=== PATIENT | female | born 1970 | race Caucasian/White ===

== ENCOUNTER 2020-07-08 01:59 | Observation (INO) | payer BC, OTHER ==
[2020-07-08 02:54] LABS: Basophils # (A) 0.1 k/uL (0-0.2); Basophils % (A) 1 %; Eosinophils # (A) 0.3 k/uL (0-0.7); Eosinophils % (A) 5 %; HGB 12.8 gm/dL (11.4-16.0); Lymphocytes # (A) 2.3 k/uL (1.0-4.8); Lymphocytes % (A) 35 %; MCH 29.8 pg (25.0-35.0); MCHC 34.6 g/dL (31.0-37.0); MCV 86.2 fL (80.0-100.0); Mean Platelet Volume 10.6; Monocytes # (A) 0.4 k/uL (0-1.0); Monocytes % (A) 7 %; Neutrophils # (A) 3.3 k/uL (1.3-7.7); Neutrophils % (A) 51 %; Platelet Count 237 k/uL (150-450); RDW 12.8 % (11.5-15.5); WBC 6.5 k/uL (3.8-10.6)
--- NOTE | 2020-07-08 03:01 | XR ---
EXAM: XR Abdomen, 1 View CLINICAL HISTORY: ITS.REASON XR Reason: abdominal pain TECHNIQUE: Frontal supine view of the abdomen/pelvis. COMPARISON: No relevant prior studies available. FINDINGS: Gastrointestinal tract: Gas and moderate stool are seen throughout the nondilated colon. No pneumatosis. Bones/joints: No acute fracture or malalignment. Other findings: No suspicious calcification. IMPRESSION: Moderate stool.
[2020-07-08 03:02] LABS: ALT 13 U/L (4-34); AST 22 U/L (14-36); African American GFR (CKD) >90 (>60 ml/min/1.73 sqM); Albumin 4.3 g/dL (3.5-5.0); Alkaline Phosphatase 38 U/L (38-126); Amylase 75 U/L (30-110); Anion Gap 6 mmol/L; Blood Urea Nitrogen 10 mg/dL (7-17); Calcium 9.5 mg/dL (8.4-10.2); Carbon Dioxide 28 mmol/L (22-30); Chloride 103 mmol/L (98-107); Glucose 102 mg/dL (74-99); Lipase 127 U/L (23-300); Non-African American GFR(CKD) >90 (>60 ml/min/1.73 sqM); Potassium 4.4 mmol/L (3.5-5.1); Sodium 137 mmol/L (137-145); Total Bilirubin 0.2 mg/dL (0.2-1.3); Total Protein 6.9 g/dL (6.3-8.2)
--- NOTE | 2020-07-08 03:14 | ED ---
Abdominal Pain HPI - General Chief Complaint: Abdominal Pain Stated Complaint: Abd Pain Time Seen by Provider: 07/08/20 03:02 Source: patient, family Mode of arrival: ambulatory Limitations: no limitations - Related Data Allergies Allergy/AdvReac Type Severity Reaction Status Date / Time No Known Allergies Allergy Verified 07/08/20 02:07 Review of Systems ROS Statement: Those systems with pertinent positive or pertinent negative responses have been documented in the HPI. ROS Other: All systems not noted in ROS Statement are negative. Past Medical History Past Medical History: No Reported History History of Any Multi-Drug Resistant Organisms: None Reported Past Surgical History: Hysterectomy Past Psychological History: No Psychological Hx Reported Smoking Status: Never smoker Past Alcohol Use History: Occasional General Exam Limitations: no limitations Course Vital Signs 07/08/20 02:02 Temperature 97.7 F Pulse Rate 63 Respiratory 18 Rate Blood Pressure 163/90 O2 Sat by Pulse 100 Oximetry Medical Decision Making - Lab Data Result diagrams: 07/08/20 02:36 07/08/20 02:36 Lab Results 07/08/20 07/08/20 07/08/20 Range/Units 02:36 02:36 02:36 WBC 6.5 (3.8-10.6) k/uL RBC 4.30 (3.80-5.40) m/uL Hgb 12.8 (11.4-16.0) gm/dL Hct 37.0 (34.0-46.0) % MCV 86.2 (80.0-100.0) fL MCH 29.8 (25.0-35.0) pg MCHC 34.6 (31.0-37.0) g/dL RDW 12.8 (11.5-15.5) % Plt Count 237 (150-450) k/uL MPV 10.6 Neutrophils % 51 % Lymphocytes % 35 % Monocytes % 7 % Eosinophils % 5 % Basophils % 1 % Neutrophils # 3.3 (1.3-7.7) k/uL Lymphocytes # 2.3 (1.0-4.8) k/uL Monocytes # 0.4 (0-1.0) k/uL Eosinophils # 0.3 (0-0.7) k/uL Basophils # 0.1 (0-0.2) k/uL Sodium 137 (137-145) mmol/L Potassium 4.4 (3.5-5.1) mmol/L Chloride 103 (98-107) mmol/L Carbon Dioxide 28 (22-30) mmol/L Anion Gap 6 mmol/L BUN 10 (7-17) mg/dL Creatinine 0.52 (0.52-1.04) mg/dL Est GFR (CKD-EPI)AfAm >90 (>60 ml/min/1.73 sqM) Est GFR (CKD-EPI)NonAf >90 (>60 ml/min/1.73 sqM) Glucose 102 H (74-99) mg/dL Calcium 9.5 (8.4-10.2) mg/dL Total Bilirubin 0.2 (0.2-1.3) mg/dL AST 22 (14-36) U/L ALT 13 (4-34) U/L Alkaline Phosphatase 38 (38-126) U/L Total Protein 6.9 (6.3-8.2) g/dL Albumin 4.3 (3.5-5.0) g/dL Amylase 75 (30-110) U/L Lipase 127 (23-300) U/L Urine Color Yellow Urine Appearance Clear (Clear) Urine pH 5.0 (5.0-8.0) Ur Specific [place] 1.019 (1.001-1.035) Urine Protein Negative (Negative) Urine Glucose (UA) Negative (Negative) Urine Ketones Negative (Negative) Urine Blood Negative (Negative) Urine Nitrite Negative (Negative) Urine Bilirubin Negative (Negative) Urine Urobilinogen <2.0 (<2.0) mg/dL Ur Leukocyte Esterase Moderate H (Negative) Urine RBC 1 (0-5) /hpf Urine WBC 4 (0-5) /hpf Ur Squamous Epith Cells 6 H (0-4) /hpf Urine Bacteria Rare H (None) /hpf Hyaline Casts 4 H (0-2) /lpf Urine Mucus Rare H (None) /hpf Disposition Clinical Impression: Abdominal pain, Cholecystitis Disposition: ADMITTED IP TO THIS HOSP Condition: Good Is patient prescribed a controlled substance at d/c from ED?: No Referrals: Shirley Mcdonald MD [Primary Care Provider] - 1-2 days
[2020-07-08] MEDS ORDERED: MORPHINE SULFATE 4 MG/ML SYRINGE IVP STA ×2 (03:20)
[2020-07-08] MEDS ORDERED: KETOROLAC 15 MG/ML 1 ML VIAL IVP STA (03:20)
[2020-07-08] MEDS: KETOROLAC 15 MG/ML 1 ML VIAL IVP STA ×2 (03:35→13:40)
[2020-07-08 04:05] LABS: Appearance,Urine Clear (Clear); Bacteria,Urine Rare /hpf; Bilirubin,Urine Negative (Negative); Blood,Urine Negative (Negative); Color,Urine Yellow; Glucose,Urine (UA) Negative (Negative); Hyaline Casts,Urine 4 /lpf (0-2); Ketones,Urine Negative (Negative); Leukocyte Esterase,Urine Moderate (Negative); Mucus,Urine Rare /hpf; Nitrite,Urine Negative (Negative); Protein,Urine Negative (Negative); RBC,Urine 1 /hpf (0-5); Specific Gravity,Urine 1.019 (1.001-1.035); Squamous Epithelial Cell,Urine 6 /hpf (0-4); Urobilinogen,Urine <2.0 mg/dL (<2.0); WBC,Urine 4 /hpf (0-5)
--- NOTE | 2020-07-08 04:21 | CT ---
EXAM: CT Abdomen and Pelvis With Intravenous Contrast CLINICAL HISTORY: ITS.REASON CT Reason: pain TECHNIQUE: Axial computed tomography images of the abdomen and pelvis with intravenous contrast. CTDI is 26.57 mGy and DLP is 1181.14 mGy-cm. This CT exam was performed using one or more of the following dose reduction techniques: automated exposure control, adjustment of the mA and/or kV according to patient size, and/or use of iterative reconstruction technique. COMPARISON: No relevant prior studies available. FINDINGS: Lung bases: No significant abnormality. ABDOMEN: Liver: No significant abnormality. Gallbladder and bile ducts: A 2.5 cm gallstone is present in the neck of the distended, mildly thickened gallbladder. Mildly dilated common bile duct measures up to 8 mm. Pancreas: No significant abnormality. Spleen: No significant abnormality. Adrenals: No significant abnormality. Kidneys and ureters: No significant abnormality. No hydronephrosis. Stomach and bowel: No significant abnormality. Bowel is nondilated. PELVIS: Appendix: No findings to suggest acute appendicitis. Bladder: No significant abnormality. Reproductive: The uterus is absent. ABDOMEN and PELVIS: Intraperitoneal space: No significant abnormality. No free air. Bones/joints: No acute fracture or malalignment. Soft tissues: No significant abnormality. Vasculature: No significant abnormality. No abdominal aortic aneurysm. Lymph nodes: No significant abnormality. IMPRESSION: A 2.5 cm gallstone is present in the neck of the distended, mildly thickened gallbladder. Mildly dilated common bile duct measures up to 8 mm. Findings can be seen in the setting of acute cholecystitis.
[2020-07-08] MEDS ORDERED: SODIUM CHLORIDE 0.9% 1,000 ML IV ONE (05:09)
[2020-07-08] MEDS ORDERED: MORPHINE SULFATE 4 MG/ML SYRINGE IVP PRN (05:10)
[2020-07-08] MEDS ORDERED: AMPICILLIN-SULBACTAM 3 GM in SODIUM CHLORIDE 0.9% 100 ML IVPB STA (06:34)
--- NOTE | 2020-07-08 08:35 | US ---
EXAMINATION TYPE: US gallbladder DATE OF EXAM: 07/08/2020 COMPARISON: NONE CLINICAL HISTORY: [place]. Abn CT - stone, abd pain with episodes throughout the year, large habitus EXAM MEASUREMENTS: Liver Length: 17.1 cm Gallbladder Wall: 0.6 cm CBD: 0.8 cm Right Kidney: 9.5 x 4.3 x 4.3 cm Pancreas: not seen due to bowel gas Liver: difficult to penetrate Gallbladder: 2.4cm stone seen in neck, moved slightly when rolled LLD, tiny fundal stone, with wall thickness Evidence for sonographic Sales's sign: no, but on meds CBD: 0.8 -1.0cm, Right Kidney: wnl IMPRESSION: 1. Study is limited due to overlying bowel gas. The pancreas is not seen. The liver is poorly visuali zed. 2. Cholelithiasis. There is a 2.4 cm gallstone in the neck of the gallbladder and a tiny fundal stone . The gallbladder wall is thickened measuring 5 mm. Clinical correlation for cholecystitis is recomme nded. 3. The common duct measures 8 mm to 1 cm, which is dilated. A small obstructing lesion or calculus is not excluded. MRCP would be helpful for further evaluation of clinically indicated.
[2020-07-08] MEDS ORDERED: IV FLUID CONTINUATION 1,000 ML IV ONE ×3 (10:36→13:23)
[2020-07-08] MEDS ORDERED: ONDANSETRON 4 MG/2 ML VIAL ONE (10:39)
[2020-07-08] MEDS ORDERED: HEPARIN SODIUM,PORCINE/PF 5,000 UNIT/0.5 ML SYRINGE SQ ONE (10:39)
--- NOTE | 2020-07-08 10:39 | P.GSHP ---
History of Present Illness H&P Date: 07/08/20 Chief Complaint: Right upper quadrant pain Patient presents today to the ER with complaints of right upper quadrant pain. She has had several episodes like this in the past. This one seemed to be lasting longer. In the ER she had a CAT scan which showed a distended gallbl adder with inflammatory changes and a large stone impacted in the neck of the gallbladder. The common bile duct was slightly distended on both that study and the ultrasound with the CBD measuring 8-10 mm in size. No filling defects noted. Patient's liver enzymes are normal. She denies any change in the color of her skin urine or stool. - Review of Systems Comment: The patient denies any acute changes in vision or hearing, no dysphagia or odynophagia, no chest pain or shortness of breath, no dysuria or hematuria, no headache, no runny nose, no rectal bleeding or melena, no unexplained weight loss Past Medical History Past Medical History: No Reported History History of Any Multi-Drug Resistant Organisms: None Reported Past Surgical History: Hysterectomy Past Psychological History: No Psychological Hx Reported Smoking Status: Never smoker Past Alcohol Use History: Occasional Medications and Allergies Home Medications Medication Instructions Recorded Confirmed Type Albuterol Nebulized [Ventolin 2.5 mg INHALATION RT-Q6H PRN 07/08/20 07/08/20 History Nebulized] Cyclobenzaprine [Flexeril] 10 mg PO HS PRN 07/08/20 07/08/20 History Esomeprazole Magnesium [NexIUM 20 mg PO HS 07/08/20 07/08/20 History 24Hr] Montelukast [Singulair] 10 mg PO HS 07/08/20 07/08/20 History Allergies Allergy/AdvReac Type Severity Reaction Status Date / Time No Known Allergies Allergy Verified 07/08/20 06:59 Surgical - Exam Vital Signs Temp Pulse Resp BP Pulse Ox 97.7 F 63 18 163/90 100 07/08/20 02:02 07/08/20 02:02 07/08/20 02:02 07/08/20 02:02 07/08/20 02:02 Physical exam: General: Well-developed, well-nourished HEENT: Normocephalic, sclerae nonicteric Abdomen: Right upper quadrant tenderness, nondistended Extremities: No edema Neuro: Alert and oriented Results - Labs 07/08/20 02:36 07/08/20 02:36 Abnormal Lab Results - Last 24 Hours (Table) 07/08/20 07/08/20 Range/Units 02:36 02:36 Glucose 102 H (74-99) mg/dL Ur Leukocyte Esterase Moderate H (Negative) Ur Squamous Epith Cells 6 H (0-4) /hpf Urine Bacteria Rare H (None) /hpf Hyaline Casts 4 H (0-2) /lpf Urine Mucus Rare H (None) /hpf Diabetes panel 07/08/20 Range/Units 02:36 Sodium 137 (137-145) mmol/L Potassium 4.4 (3.5-5.1) mmol/L Chloride 103 (98-107) mmol/L Carbon Dioxide 28 (22-30) mmol/L BUN 10 (7-17) mg/dL Creatinine 0.52 (0.52-1.04) mg/dL Glucose 102 H (74-99) mg/dL Calcium 9.5 (8.4-10.2) mg/dL AST 22 (14-36) U/L ALT 13 (4-34) U/L Alkaline Phosphatase 38 (38-126) U/L Total Protein 6.9 (6.3-8.2) g/dL Albumin 4.3 (3.5-5.0) g/dL Calcium panel 07/08/20 Range/Units 02:36 Calcium 9.5 (8.4-10.2) mg/dL Albumin 4.3 (3.5-5.0) g/dL Pituitary panel 07/08/20 Range/Units 02:36 Sodium 137 (137-145) mmol/L Potassium 4.4 (3.5-5.1) mmol/L Chloride 103 (98-107) mmol/L Carbon Dioxide 28 (22-30) mmol/L BUN 10 (7-17) mg/dL Creatinine 0.52 (0.52-1.04) mg/dL Glucose 102 H (74-99) mg/dL Calcium 9.5 (8.4-10.2) mg/dL Adrenal panel 07/08/20 Range/Units 02:36 Sodium 137 (137-145) mmol/L Potassium 4.4 (3.5-5.1) mmol/L Chloride 103 (98-107) mmol/L Carbon Dioxide 28 (22-30) mmol/L BUN 10 (7-17) mg/dL Creatinine 0.52 (0.52-1.04) mg/dL Glucose 102 H (74-99) mg/dL Calcium 9.5 (8.4-10.2) mg/dL Total Bilirubin 0.2 (0.2-1.3) mg/dL AST 22 (14-36) U/L ALT 13 (4-34) U/L Alkaline Phosphatase 38 (38-126) U/L Total Protein 6.9 (6.3-8.2) g/dL Albumin 4.3 (3.5-5.0) g/dL Assessment and Plan (1) Cholecystitis Narrative/Plan: 49-year-old female with acute cholecystitis. Ultrasound and CAT scan studies reviewed. Labs noted. We'll proceed with laparoscopic, possible open cholecystectomy at this time. Risks of bleeding, infection, bile leak, bile duct injury, retained common bile duct stone, trocar injury, conversion to an open procedure, hernia, anesthesia related complications were reviewed. The patient understands and wishes to proceed. Current Visit: Yes Status: Acute Code(s): K81.9 - CHOLECYSTITIS, UNSPECIFIED SNOMED Code(s): 70593329
[2020-07-08] MEDS ORDERED: ONDANSETRON 4 MG/2 ML VIAL IVP ONE (10:46)
[2020-07-08] MEDS ORDERED: HEPARIN SODIUM,PORCINE 5,000 UNIT/ML 1 ML VIAL SQ ONE (10:46)
[2020-07-08] MEDS ORDERED: DEXAMETHASONE SOD PHOSPHATE 4 MG/ML 1 ML VIAL IVP ONE (10:46)
[2020-07-08] MEDS ORDERED: ePHEDrine SULFATE/0.9% NACL/PF 50 MG/5 ML SYRINGE IV ONE (12:05)
[2020-07-08] MEDS ORDERED: fentaNYL (PF) 50 MCG/ML 2 ML AMP ONE (12:05)
[2020-07-08] MEDS ORDERED: ROCURONIUM 10 MG/ML (5 ML VIAL) IV ONE (12:05)
[2020-07-08] MEDS ORDERED: GLYCOPYRROLATE 0.2 MG/ML 2 ML VIAL ONE (12:05)
[2020-07-08] MEDS ORDERED: PROPOFOL 10 MG/ML 20 ML VIAL IV ONE (12:05)
[2020-07-08] MEDS ORDERED: MIDAZOLAM 2 MG/2 ML VIAL ONE (12:05)
[2020-07-08] MEDS ORDERED: LIDOCAINE 1% INJ 10MG/ML (20 ML MDV) ONE (12:05)
[2020-07-08] MEDS ORDERED: NEOSTIGMINE 1 MG/ML 10 ML VIAL ONE (12:05)
[2020-07-08] MEDS ORDERED: SUCCINYLCHOLINE CHLORIDE 100 MG/5 ML SYR IV ONE (12:05)
[2020-07-08] MEDS ORDERED: HYDROmorphone (PF) 1 MG/ML ONE (12:05)
[2020-07-08] MEDS ORDERED: SODIUM CHLORIDE 0.9% 100 ML with ceFAZolin 2,000 MG IV ONE ×2 (12:18)
[2020-07-08] MEDS ORDERED: LACTATED RINGERS 1,000 ML IV ONE (12:19)
[2020-07-08] MEDS ORDERED: BUPIVACAINE (PF) 0.25% 30 ML VIAL SQ ONE ×3 (12:19→12:28)
[2020-07-08] MEDS ORDERED: HYDROcodone/APAP 5-325MG 1 EACH TAB PO PRN (13:18)
[2020-07-08] MEDS ORDERED: ACETAMINOPHEN TAB 325 MG TAB PO PRN (13:18)
[2020-07-08] MEDS ORDERED: NALOXONE 0.4 MG/ML 1 ML VIAL IV PRN (13:18)
--- NOTE | 2020-07-08 13:22 | P.OP ---
Date of Procedure: 07/08/20 Procedure(s) Performed: PREOPERATIVE DIAGNOSIS: Acute calculus cholecystitis POSTOPERATIVE DIAGNOSIS: Same with hydrops PROCEDURE: Laparoscopic cholecystectomy SURGEON: Bashir EBL: Minimal see anesthesia record ANESTHESIA: Gen. COMPLICATIONS: None OPERATIVE PROCEDURE: The patient was brought and placed on the operating room table in the supine position. The patient was placed under general anesthesia at that time. The abdomen was prepped and draped in the usual sterile fashion. A small vertical supraumbilical incision was made. The fascia was grasped with the Gavin forceps. The fascia was retracted anteriorly. The Veress needle was advanced into the peritoneal cavity. The saline drop test was normal. Insufflation took place up to 15 mmHg. A 5 mm optical trocar was advanced and the peritoneal cavity. 2 additional 5 mm trochars were placed in the right upper quadrant under direct visualization. A 12 mm trocar was advanced into the epigastric incision site. The gallbladder was acutely inflamed with a large stone impacted in the infundibulum. The gallbladder was retracted superiorly and laterally. The peritoneum overlying the infundibulum was bluntly dissected. The patient's cystic duct was visualized. The junction between the cystic duct common and hepatic duct was identified. The critical view of safety was achieved after blunt dissection. The cystic duct was then divided after placement of 3 12 mm clips on the patient's side and one on the specimen side. The cystic artery was identified and clipped as well. A small vessel was seen along the gallbladder fossa and clipped as well. The gallbladder was then removed from the liver bed using electrocautery. The gallbladder was then removed from the epigastric trocar site with an Endo Catch bag. The gallbladder fossa was irrigated with saline. There was no evidence of any bleeding or biliary drainage seen. The fascia at the 12 millimeter site was closed using a Venkat-Juan 0 Vicryl stitch. The trochars were then removed. The skin at all 4 sites was closed using a 4-0 Monocryl stitch. Skin glue was utilized on the incision sites. At the end of this procedure the sponge and needle counts were correct. DISPOSITION: Stable to the recovery room
[2020-07-08] MEDS: KETOROLAC 15 MG/ML 1 ML VIAL IVP SCH ×2 (13:37→18:08)
[2020-07-08] MEDS: HYDROmorphone 0.5 MG/0.5 ML SYRINGE IVP PRN ×3 (13:47→19:54)
[2020-07-08] MEDS: AMPICILLIN-SULBACTAM 3 GM in SODIUM CHLORIDE 0.9% 100 ML IVPB SCH ×2 (15:23→23:04)
[2020-07-08] MEDS: HEPARIN SODIUM,PORCINE/PF 5,000 UNIT/0.5 ML SYRINGE SQ SCH (15:24)
[2020-07-09] MEDS: KETOROLAC 15 MG/ML 1 ML VIAL IVP SCH ×2 (01:31→05:32)
[2020-07-09] MEDS: HEPARIN SODIUM,PORCINE/PF 5,000 UNIT/0.5 ML SYRINGE SQ SCH ×2 (01:32→07:35)
[2020-07-09] MEDS: AMPICILLIN-SULBACTAM 3 GM in SODIUM CHLORIDE 0.9% 100 ML IVPB SCH (07:35)
[2020-07-09 07:45] VITALS: BP 134/79; PULSE 68; RESP 18; TEMP 97.7
[2020-07-09] MEDS ORDERED: PANTOPRAZOLE 40 MG/10 ML VIAL IV SCH (09:00)
--- NOTE | 2020-07-09 11:08 | P.DS ---
<Raisa Bruner - Last Filed: 07/09/20 11:06> Providers Expected date of discharge: 07/09/20 Hospital Course: Discharge diagnosis 1. Acute calculus cholecystitis status post laparoscopic cholecystectomy Hospital course This is a 49-year-old female who presented with right upper quadrant abdominal pain. She has had several episodes like this in the past. This one seemed to be lasting longer. In the ER she had a CAT scan which showed a distended gallbladder with inflammatory changes and a large stone impacted in the neck of the gallbladder. The common bile duct was slightly distended on both that study and the ultrasound with the CBD measuring 8-10 mm in size. No filling defects noted. Patient's liver enzymes are normal. She denies any change in the color of her skin urine or stool. Patient is status post laparoscopic cholecystectomy. She tolerated surgery well. She reports that her pain is controlled. She is tolerating diet. She is passing flatus. She is up and ambulating. She is afebrile. She is stable for discharge. Please refer to chart for any further details. Physician Meter Attendant note has been reviewed by physician. Signing provider agrees with the documented findings, assessment, and plan of care. Patient Condition at Discharge: Stable Plan - Discharge Summary Discharge Rx Participant: No New Discharge Prescriptions: New oxyCODONE HCL [OxyIR] 5 mg PO Q6H PRN 3 Days #6 tab PRN Reason: Breakthrough Pain Continue Esomeprazole Magnesium [NexIUM 24Hr] 20 mg PO HS Albuterol Nebulized [Ventolin Nebulized] 2.5 mg INHALATION RT-Q6H PRN PRN Reason: Shortness Of Breath Cyclobenzaprine [Flexeril] 10 mg PO HS PRN PRN Reason: Muscle Spasm Montelukast [Singulair] 10 mg PO HS Discharge Medication List Albuterol Nebulized [Ventolin Nebulized] 2.5 mg INHALATION RT-Q6H PRN 07/08/20 [History] Cyclobenzaprine [Flexeril] 10 mg PO HS PRN 07/08/20 [History] Esomeprazole Magnesium [NexIUM 24Hr] 20 mg PO HS 07/08/20 [History] Montelukast [Singulair] 10 mg PO HS 07/08/20 [History] oxyCODONE HCL [OxyIR] 5 mg PO Q6H PRN 3 Days #6 tab 07/08/20 [Rx] Follow up Appointment(s)/Referral(s): Erich Camejo MD [Medical Doctor] - 1 Week Shirley Mcdonald MD [Primary Care Provider] - 1-2 days Patient Instructions/Handouts: *Surgery [facility] - Laparoscopic Cholecystectomy Discharge Instructions Activity/Diet/Wound Care/Special Instructions: low fat diet No driving while taking OxyIR No lifting over 10 pounds You may shower. No soaking or tub baths for 2 weeks Very light activity until you are reevaluated at your follow up appointment with your surgeon Discharge Disposition: HOME SELF-CARE <Erich Camejo - Last Filed: 07/09/20 12:20> Providers Date of admission: 07/08/20 05:10 Attending physician: Erich Camejo Primary care physician: Shirley Mcdonald MD - Discharge Diagnosis(es) (1) Cholecystitis Status: Acute Hospital Course: As above. Patient doing well today. May discharge. Follow-up one week.
== END 2020-07-09 11:40 | disposition home or self-care (01) ==
LOC: EC 01:59 → 6NMEDSUR 05:10
PROVIDERS: ADMIT Surgery; ATTEND Surgery
DX: K80.13 Calculus of gallbladder with acute and chronic cholecystitis with obstruction (principal); K82.1 Hydrops of gallbladder; J45.909 Unspecified asthma, uncomplicated; K21.9 Gastro-esophageal reflux disease without esophagitis; Z79.899 Other long term (current) drug therapy; Z90.710 Acquired absence of both cervix and uterus
CPT/HCPCS: 47562; 96376; 96374; 96375; 99285; 36415; 88304; 80053; 82150; 83690; 85025; 81001; 87635; 74018; 76705; 74177; G0378 ×2; J2250; J2270; J1644 ×3; J1100; J2710; J2405; J0690; J2001; J3010; J1170 ×2; J0295 ×2; J1885 ×2; J0330; J2704; Q9967

== ENCOUNTER → 2021-07-08 | Outpatient (CLI) | payer BC ==
--- NOTE | 2021-07-09 09:25 | MM ---
Reason for Exam: Screening (asymptomatic). Last mammogram was performed 4 year(s) and 3 month(s) ago. Patient History: Menarche at age 14. First Full-Term at age 22. Hysterectomy at age 46. Risk Values: Alicia 5 year model risk: 0.8%. NCI Lifetime model risk: 8.3%. Prior Study Comparison: 02/09/2013 Bilateral Screening Mammogram, [facility]. 11/17/2015 Bilateral Screening Mammogram, [facility]. Tissue Density: The breast tissue is heterogeneously dense. This may lower the sensitivity of mammography. Findings: Analyzed By CAD. There are few scattered benign-appearing round calcifications bilaterally redemonstrated. There is no suspicious group of microcalcifications or new suspicious mass in either breast. Overall Assessment: Benign, BI-RAD 2 Management: Screening Mammogram of both breasts in 1 year. A clinical breast exam by your physician is recommended on an annual basis and results should be correlated with mammographic findings. Electronically signed and approved by: Maurizio Thorne M.D.
== END | disposition home or self-care (01) ==
LOC: RADMAMWWP 07:05
PROVIDERS: ATTEND Family Medicine
DX: Z12.31 Encounter for screening mammogram for malignant neoplasm of breast (principal)
CPT/HCPCS: 77063; 77067

== ENCOUNTER 2021-08-28 11:23 | Day surgery (SDC) | payer BC ==
[2021-08-27 09:06] VITALS: BMI 34.0
[~2021-08-28 11:23] MED LIST: LACTATED RINGERS 1,000 ML IV SCH; LIDOCAINE 1% (10MG/ML) FOR IV START INTRADERMA PRN
[2021-08-28 12:10] VITALS: RESP 16; TEMP 97.7
[2021-08-28] MEDS ORDERED: PROPOFOL 10 MG/ML 20 ML VIAL IV ONE (13:32)
[2021-08-28] MEDS ORDERED: LIDOCAINE 2% INJ 20 MG/ML (2 ML VIAL) ONE (13:32)
--- NOTE | 2021-08-28 13:50 | P.PCN ---
Date of Procedure: 08/28/21 Procedure(s) Performed: BRIEF HISTORY: Patient is a 50-year-old pleasant white female scheduled for an elective colonoscopy as a part of for colon cancer and family history of colon cancer. Her father was diagnosed with colon cancer at age 42. PROCEDURE PERFORMED: Colonoscopy. PREOPERATIVE DIAGNOSIS: Screening for colon cancer and family history of colon cancer. IV sedation per Anesthesia. PROCEDURE: After informed consent was obtained, the patient, was brought into the endoscopy unit. IV sedation was administered by Anesthesia under continuous monitoring. Digital rectal examination was normal. Initially the Olympus CF-160 flexible video colonoscope was then inserted in the rectum, gradually advanced into the cecum without any difficulty. Careful examination was performed as the scope was gradually being withdrawn. Ileocecal valve and the appendiceal orifice were visualized and appeared normal. Prep was excellent. Mucosa of the cecum, ascending colon, transverse colon, descending colon, sigmoid colon, and rectum appeared normal. Retroflexion was performed in the rectum and no lesions were seen. The patient tolerated the procedure well. IMPRESSION: Normal-appearing colon from rectum to cecum with no evidence of colorectal neoplasia. RECOMMENDATIONS: Findings of this examination were discussed with the patient as well as her family.. She was advised to have a repeat screening colonoscopy in 5 years from now because of the family history of colon cancer
[2021-08-28 13:54] VITALS: BP 123/80
[2021-08-28 14:08] VITALS: PULSE 80
== END 2021-08-28 14:24 | disposition home or self-care (01) ==
LOC: ORWHC2ENDO 11:23
PROVIDERS: ATTEND Internal Medicine Gastroenterology
DX: Z12.11 Encounter for screening for malignant neoplasm of colon (principal); Z80.0 Family history of malignant neoplasm of digestive organs; J45.909 Unspecified asthma, uncomplicated; K21.9 Gastro-esophageal reflux disease without esophagitis; Z79.899 Other long term (current) drug therapy; Z90.710 Acquired absence of both cervix and uterus
CPT/HCPCS: J2704; J2001; G0105

== ENCOUNTER 2022-05-18 15:02 | Emergency (ER) | payer BC, OTHER ==
[2022-05-18 15:18] VITALS: TEMP 98.2
[2022-05-18] MEDS ORDERED: SODIUM CHLORIDE 0.9% 1,000 ML IV STA (15:22)
[2022-05-18] MEDS ORDERED: SODIUM CHLORIDE 0.9% 500 ML 500 ML IV STA (15:22)
[2022-05-18 16:06] LABS: Basophils % (A) 1 %; Eosinophils # (A) 0.3 k/uL (0-0.7); Eosinophils % (A) 4 %; HCT 37.5 % (34.0-46.0); HGB 12.7 gm/dL (11.4-16.0); Lymphocytes # (A) 2.3 k/uL (1.0-4.8); Lymphocytes % (A) 35 %; MCH 28.7 pg (25.0-35.0); MCHC 33.8 g/dL (31.0-37.0); MCV 84.8 fL (80.0-100.0); Mean Platelet Volume 8.9; Monocytes # (A) 0.4 k/uL (0-1.0); Monocytes % (A) 6 %; Neutrophils # (A) 3.4 k/uL (1.3-7.7); Neutrophils % (A) 52 %; Platelet Count 290 k/uL (150-450); RBC 4.42 m/uL (3.80-5.40); RDW 13.1 % (11.5-15.5); WBC 6.7 k/uL (3.8-10.6)
--- NOTE | 2022-05-18 16:19 | ED ---
Chest Pain HPI - General Chief Complaint: Chest Pain Stated Complaint: sent by Dr qiu CXR Time Seen by Provider: 05/18/22 15:21 Source: patient, RN notes reviewed, old records reviewed Mode of arrival: ambulatory Limitations: no limitations - History of Present Illness Initial Comments: This is a 51-year-old female who was sent to our ER for evaluation of an abnormal x-ray versus cough 4 days. Patient presents today after seeing primary care and having x-ray done at outpatient facility which bili showed widened mediastinum. On arrival to the ER patient is a symptomatic maybe a little bit mildly nervous nonsmoker with no significant blood pressure she has taken blood pressure medication for about a year MD Complaint: chest pain, other (abnormal outpatient chest x-ray) -: hour(s) Onset: during rest, during exertion Pain Location: substernal Pain Radiation: none Severity: mild Severity scale (1-10): 2 Consistency: intermittent Improves With: nothing Worsens With: nothing Other Symptoms: palpitations Treatments Prior to Arrival: none - Related Data Home Medications Medication Instructions Recorded Confirmed Montelukast [Singulair] 10 mg PO HS 07/08/20 05/18/22 Albuterol Sulfate [Albuterol 2 puff PO RT-Q4H PRN 05/18/22 05/18/22 Sulfate Hfa] Ipratropium-Albuterol Nebulize 3 ml INHALATION RT-Q6H PRN 05/18/22 05/18/22 [Duoneb 0.5 mg-3 mg/3 ml Soln] hydroCHLOROthiazide [Hydrodiuril] 25 mg PO DAILY 05/18/22 05/18/22 Allergies Allergy/AdvReac Type Severity Reaction Status Date / Time No Known Allergies Allergy Verified 05/18/22 17:13 Review of Systems ROS Statement: Those systems with pertinent positive or pertinent negative responses have been documented in the HPI. ROS Other: All systems not noted in ROS Statement are negative. EKG Findings - EKG Comments: EKG Findings:: EKG is sinus 85 WI 191 QRS 90 QTC 392 Past Medical History Past Medical History: Asthma, GERD/Reflux History of Any Multi-Drug Resistant Organisms: None Reported Past Surgical History: Cholecystectomy, Hysterectomy Additional Past Surgical History / Comment(s): COLONOSCOPY Past Anesthesia/Blood Transfusion Reactions: No Reported Reaction Past Psychological History: No Psychological Hx Reported Smoking Status: Never smoker Past Alcohol Use History: Occasional Past Drug Use History: None Reported - Past Family History Father Family Medical History: Cancer General Exam Limitations: no limitations General appearance: alert, in no apparent distress Head exam: Present: atraumatic, normocephalic, normal inspection Eye exam: Present: normal appearance, PERRL, EOMI. Absent: scleral icterus, conjunctival injection, periorbital swelling ENT exam: Present: normal exam, mucous membranes moist Neck exam: Present: normal inspection. Absent: tenderness, meningismus, lymphadenopathy Respiratory exam: Present: normal lung sounds bilaterally. Absent: respiratory distress, wheezes, rales, rhonchi, stridor Cardiovascular Exam: Present: regular rate, normal rhythm, normal heart sounds. Absent: systolic murmur, diastolic murmur, rubs, gallop, clicks GI/Abdominal exam: Present: soft, normal bowel sounds. Absent: distended, tenderness, guarding, rebound, rigid Extremities exam: Present: normal inspection, full ROM, normal capillary refill. Absent: tenderness, pedal edema, joint swelling, calf tenderness Back exam: Present: normal inspection Neurological exam: Present: alert, oriented X3, CN II-XII intact Psychiatric exam: Present: normal affect, normal mood Skin exam: Present: warm, dry, intact, normal color. Absent: rash Course Vital Signs 05/18/22 05/18/22 05/18/22 15:12 15:55 15:56 Temperature 98.2 F Pulse Rate 99 Pulse Rate [ 80 Operations Asst ] Respiratory 20 18 Rate Blood Pressure 153/97 O2 Sat by Pulse 99 Oximetry 05/18/22 05/18/22 05/18/22 16:17 17:29 18:31 Temperature Pulse Rate 83 78 86 Pulse Rate [ Operations Asst ] Respiratory 16 16 20 Rate Blood Pressure 183/108 159/100 152/89 O2 Sat by Pulse 98 98 98 Oximetry - Reevaluation(s) Reevaluation #1: 05/18/22 22:05 Medical record is reviewed Reevaluation #2: 05/18/22 22:05 Patient remains a symptomatic throughout ER stay Reevaluation #3: 05/18/22 22:05 Patient informed results and questions answered Reevaluation #4: 05/18/22 Was pt. sent in by a medical professional or institution? @ -no Did you speak to anyone other than the patient for history? @ -no Did you review nursing and triage notes? @ -agree Were old charts reviewed? @ -yes Differential Diagnosis? @ -no EKG interpreted by me (3pts min.)? @ -no X-rays interpreted by me (1pt min.)? @ -no CT interpreted by me (1pt min.)? @ -no U/S interpreted by me (1pt. min.)? @ -no What testing was considered but not performed? (CT, X-rays, U/S, labs)? Why? @ -no What meds were considered but not given? Why? @ -no Did you discuss the management of the patient with other professionals? @ -no Did you reconcile home meds? @ -no Was smoking cessation discussed for >3mins.? @ -no Was critical care preformed (if so, how long)? @ -no Were there social determinants of health that impacted care today? How? (Homelessness, low income, unemployed, alcoholism, drug addiction, transportation, low edu. Level, literacy, decrease access to med. care, detention, rehab)? @ -no Was there de-escalation of care discussed even if they declined? (Discuss DNR or withdrawal of care, Hospice)? @ -no What co-morbidities impacted this encounter? (DM, HTN, Smoking, COPD, CAD, Cancer, CVA, Hep., AIDS, mental health diagnosis, sleep apnea, morbid obesity)? @ -no Was patient admitted / discharged? @ -dc Undiagnosed new problem with uncertain prognosis? @ -no Drug Therapy requiring intensive monitoring for toxicity (Heparin, Nitro, Insulin, Cardizem)? @ -no Were any procedures done? @ -no Diagnosis/symptom? @ -no Acute, or Chronic, or Acute on Chronic? @ -no Uncomplicated (without systemic symptoms) or Complicated (systemic symptoms)? @ -no Side effects of treatment? @ -no Exacerbation, Progression, or Severe Exacerbation] @ -no Poses a threat to life or bodily function? @ -no Chest Pain MDM - MDM 51 female for outpatient computed tomography scan secondary to abnormal outpatient x-ray, computed tomography scan is normal here in the ER patient can be discharged home Disposition Clinical Impression: Normal exam Disposition: TRANSFER TO PSYCH HOSP/UNIT Condition: Good Instructions (If sedation given, give patient instructions): Normal Exam (ED) Is patient prescribed a controlled substance at d/c from ED?: No Referrals: Horace Collins MD [Primary Care Provider] - 1-2 days Time of Disposition: 18:10
[2022-05-18 16:32] LABS: Carbon Dioxide 33 mmol/L (22-30); Chloride 99 mmol/L (98-107); Glucose 95 mg/dL (74-99); Potassium 4.7 mmol/L (3.5-5.1); Sodium 138 mmol/L (137-145)
[2022-05-18 16:33] LABS: ALT 53 U/L (4-34); AST 48 U/L (14-36); African American GFR (CKD) >90 (>60 ml/min/1.73 sqM); Albumin 4.5 g/dL (3.5-5.0); Alkaline Phosphatase 65 U/L (38-126); Anion Gap 6 mmol/L; Blood Urea Nitrogen 18 mg/dL (7-17); Calcium 10.2 mg/dL (8.4-10.2); Magnesium 1.9 mg/dL (1.6-2.3); Non-African American GFR(CKD) >90 (>60 ml/min/1.73 sqM); Phosphorus 5.4 mg/dL (2.5-4.5); Total Bilirubin 0.5 mg/dL (0.2-1.3); Total Protein 7.6 g/dL (6.3-8.2)
[2022-05-18 16:48] LABS: INR 0.9 (<1.2); Partial Thromboplastin Time 22.2 sec (22.0-30.0); Prothrombin Time 9.6 sec (9.0-12.0)
--- NOTE | 2022-05-18 17:03 | CT ---
EXAMINATION TYPE: CT angio thor/abd pel aorta CT DLP: 1743.2 mGycm, Automated exposure control for dose reduction was used. DATE OF EXAM: 05/18/2022 4:52 PM COMPARISON: 07/08/2020 CLINICAL INDICATION:Female, 51 years old with history of abn CXR; abn CXR and back pain TECHNIQUE: Dissection protocol: Multiple axial CT images of the chest, abdomen, and pelvis were obtai katy prior and to the administration of IV contrast. 3-D reformats and maximum intensity projection fo rmat were performed on a separate workstation. Contrast used:100 mL of Isovue 370 without and with IV Contrast, Oral contrast used: FINDINGS: ARTERIAL VASCULATURE: No evidence of intramural hematoma on noncontrast imaging. The ascending thorac ic aorta, aortic arch major vessels in the descending thoracic aorta are normal. No evidence for thor acic aneurysm. No evidence for intimal flap. The abdominal aorta is within normal limits no evidence for intimal flap or aneurysm. PULMONARY ARTERIAL VASCULATURE: Normal caliber. No evidence of central filling defect to suggest pulm onary embolus. VENOUS SYSTEM: Unremarkable. Lungs/pleura: The lung parenchyma appears unremarkable. Heart: Within normal limits. Mediastinum: No gross evidence of adenopathy. Lower Neck: Right thyroid nodule measuring up to 1.9 cm. Abdomen: Liver: Unremarkable. Gallbladder and Bile ducts: Gallbladder surgically absent. Physiologic dilation of the extrahepatic b iliary system. Pancreas: Unremarkable. Spleen: Unremarkable. Adrenal glands: Unremarkable. Kidneys and Ureters: No hydronephrosis. Bladder: Unremarkable. Reproductive: Unremarkable. Stomach and Bowel: Unremarkable. No evidence of bowel obstruction. Peritoneum: No evidence of pneumoperitoneum, free fluid, or adenopathy. Musculoskeletal: The osseous structures appear intact. Mild degeneration changes of the spine. Lymph nodes: No evidence of lymphadenopathy. Abdominal wall/soft tissues: Fat-containing umbilical hernia. IMPRESSION: 1. No evidence for aortic dissection or aneurysm. No acute process. 2. No finding to correlate patient's back pain. 3. Right thyroid nodule which can be followed up in outpatient thyroid ultrasound exam.
[2022-05-18 18:32] VITALS: BP 152/89; PULSE 86; RESP 20
== END 2022-05-18 18:32 ==
LOC: EC 15:02
DX: Z00.00 Encounter for general adult medical examination without abnormal findings (principal); J45.909 Unspecified asthma, uncomplicated; Z79.899 Other long term (current) drug therapy
CPT/HCPCS: 36415; 93005; 85379; 83880; 80053; 83735; 84100; 84484; 85025; 85610; 85730; 71275; 74174; 99285; 96360; 96361; Q9967

== ENCOUNTER → 2022-07-07 | Outpatient (CLI) | payer OTHER ==
--- NOTE | 2022-07-07 22:27 | US ---
EXAMINATION TYPE: US thyroid st tissue head/neck DATE OF EXAM: 07/07/2022 COMPARISON: NONE CLINICAL INDICATION: Female, 51 years old with history of E04.1 NONTOXIC SINGLE THYROID NODULE; Pt st ates nodule found on MRI GLAND SIZE: Right Lobe: 5.0 x 2.2 x 1.9 cm Overall Parenchyma: heterogenous Left Lobe: 5.0 x 1.9 x 2.0 cm Overall Parenchyma: heterogenous Isthmus Thickness: 0.33 cm NODULES RIGHT: # of nodules measured on right: 2 1. 1.1 X 0.8 x 0.6 cm, upper medial, cystic or almost completely cystic, hypoechoic nodule, which i s wider than tall, with lobulated or irregular margins, without echogenic foci. TR 4. 2. 0.9 X 0.9 x 0.8 cm, lower lateral, solid or almost completely solid, hyperechoic nodule, which i s wider than tall, with smooth margins, with echogenic foci. TR 4. LEFT: # of nodules measured on left: 2 1. 1.0 X 0.8 x 0.6 cm, upper lateral, cystic or almost completely cystic, hypoechoic nodule, which is wider than tall, with lobulated or irregular margins, without echogenic foci. TR 4. 2. 0.9 X 0.7 x 0.7 cm, lower mid, solid or almost completely solid, hyperechoic nodule, which is w ider than tall, with smooth margins, with echogenic foci. TR 4. ISTHMUS: # of nodules measured in the isthmus: 0 Bilateral neck scanned, no evidence of lymphadenopathy. IMPRESSION: Bilateral small thyroid TR 4 nodules. Follow-up ultrasound in one year is recommended.
== END | disposition home or self-care (01) ==
LOC: RADUSWWP 16:51
PROVIDERS: ATTEND Family Medicine
DX: E04.2 Nontoxic multinodular goiter (principal)
CPT/HCPCS: 76536

== ENCOUNTER → 2022-07-09 | Outpatient (CLI) | payer OTHER ==
--- NOTE | 2022-07-12 08:50 | MM ---
Reason for Exam: Screening (asymptomatic). Last screening mammogram was performed 12 month(s) ago. Patient History: Menarche at age 14. First Full-Term at age 22. Hysterectomy at age 46. Risk Values: Alicia 5 year model risk: 0.8%. NCI Lifetime model risk: 8.2%. Prior Study Comparison: 11/17/2015 Bilateral Screening Mammogram, [facility]. 04/22/2017 Bilateral MG 3D screening mammo w/cad, Unknown. 07/08/2021 Bilateral MG 3D screening mammo w/cad, [facility]. Tissue Density: The breast tissue is heterogeneously dense. This may lower the sensitivity of mammography. Findings: Analyzed By CAD. There is no suspicious group of microcalcifications or new suspicious mass in either breast. Benign round appearing calcifications within both breasts. Stable upper outer right breast asymmetric tissue. Overall Assessment: Benign, BI-RAD 2 Management: Screening Mammogram of both breasts in 1 year. A clinical breast exam by your physician is recommended on an annual basis and results should be correlated with mammographic findings. Electronically signed and approved by: Smooth Banda D.O.
== END | disposition home or self-care (01) ==
LOC: RADMAMWWP 16:57
PROVIDERS: ATTEND Family Medicine
DX: Z12.31 Encounter for screening mammogram for malignant neoplasm of breast (principal)
CPT/HCPCS: 77063; 77067

== ENCOUNTER → 2023-08-16 | Outpatient (CLI) | payer BC ==
[2023-08-16 17:11] LABS: Basophils # (A) 0.09 X 10*3/uL (0.00-0.10); Basophils % (A) 1.3 %; Eosinophils # (A) 0.26 X 10*3/uL (0.04-0.35); Eosinophils % (A) 3.6 %; HGB 12.7 g/dL (12.0-15.0); Lymphocytes # (A) 2.51 X 10*3/uL (0.90-5.00); Lymphocytes % (A) 35.1 %; MCH 27.5 pg (27.0-32.0); MCHC 31.8 g/dL (32.0-37.0); MCV 86.8 FL (80.0-97.0); Mean Platelet Volume 12.3 FL (9.5-12.2); Monocytes # (A) 0.63 X 10*3/uL (0.20-1.00); Monocytes % (A) 8.8 %; NRBC Per 100 WBC 0 X 10*3/uL (0.00-0.01); Neutrophils # (A) 3.66 X 10*3/uL (1.80-7.70); Neutrophils % (A) 51.1 %; Platelet Count 286 X 10*3/uL (140-440); RBC 4.61 X 10*6/uL (4.10-5.20); RDW 13.4 % (11.5-14.5); WBC 7.16 X 10*3/uL (4.50-10.00)
[2023-08-16 18:30] LABS: % Iron Saturation 20.96 (12.00-45.00); Ferritin 82.4 ng/mL (10.0-291.0)
== END | disposition home or self-care (01) ==
LOC: LABWHC1 12:10
PROVIDERS: ATTEND Family Medicine
DX: R58 Hemorrhage, not elsewhere classified (principal); R79.0 Abnormal level of blood mineral
CPT/HCPCS: 36415; 82728; 83540; 83550; 85025; 85730

== ENCOUNTER → 2023-08-23 | Outpatient (CLI) | payer BC ==
--- NOTE | 2023-08-28 15:51 | MM ---
Reason for Exam: Screening (asymptomatic). Last mammogram was performed 1 year(s) and 1 month(s) ago. Patient History: Menarche at age 14. First Full-Term at age 22. Hysterectomy at age 46. Postmenopausal. Risk Values: Alicia 5 year model risk: 0.9%. NCI Lifetime model risk: 8.0%. Prior Study Comparison: 11/17/2015 Bilateral Screening Mammogram, [facility]. 04/22/2017 Bilateral MG 3D screening mammo w/cad, Unknown. 07/08/2021 Bilateral MG 3D screening mammo w/cad, [facility]. 07/09/2022 Bilateral MG 3D screening mammo w/cad, [facility]. Tissue Density: The breasts are heterogeneously dense, which may obscure small masses. Findings: Analyzed By CAD. Parenchymal pattern is Asymmetric with a focal asymmetry in the upper outer right breast the left. This is stable in appearance. No significant interval change is evident. No suspicious groups of microcalcifications, spiculated or lobular masses, architectural distortion or other secondary signs of malignancy are mammographically apparent. Overall Assessment: Benign, BI-RAD 2 Management: Screening Mammogram of both breasts in 1 year. A negative mammogram report should not preclude additional follow up of suspicious palpable abnormalities. Patient should continue monthly self breast exam. A clinical breast exam by your physician is recommended on an annual basis and results should be correlated with mammographic findings. Note on Alicia scores and lifetime risk: 1. A Alicia score greater than 3% is considered moderate risk. If this is the case, consider specialist referral to assess eligibility for a risk reducing agent. 2. If overall lifetime risk for the development of breast cancer is 20% or higher, the patient may qualify for future screening with alternating mammogram and breast MRI. Electronically signed and approved by: Jean Brito D.O. Radiologis
== END | disposition home or self-care (01) ==
LOC: RADMAMWWP 13:51
PROVIDERS: ATTEND Family Medicine
DX: Z12.31 Encounter for screening mammogram for malignant neoplasm of breast (principal); R92.333 Mammographic heterogeneous density, bilateral breasts; Z78.0 Asymptomatic menopausal state
CPT/HCPCS: 77067

== ENCOUNTER → 2023-08-25 | Outpatient (CLI) | payer BC ==
--- NOTE | 2023-08-29 13:16 | US ---
EXAMINATION TYPE: US thyroid st tissue head/neck DATE OF EXAM: 08/25/2023 COMPARISON: 06/27/22 CLINICAL INDICATION: Female, 52 years old with history of E04.1 THYROID NODULE; f/u GLAND SIZE: Right Lobe: 5.8x2.6x2.3 cm Overall Parenchyma: heterogeneous Left Lobe: 5.2x1.9x1.5 cm Overall Parenchyma: heterogeneous Isthmus Thickness: 0.4 cm NODULES RIGHT: # of nodules measured on right: 2 1. 0.9 X 0.7 x 0.8 cm, lower medial, mixed cystic and solid, hypoechoic nodule, which is wider than tall, with smooth margins, without echogenic foci. Prior size: 1.1 x 0.8 x 0.6 cm 2. 0.9 X 0.8 x 0.8 cm, upper lateral, solid or almost completely solid, nodule, which is wider than tall, with smooth margins, without echogenic foci. Prior size: 0.9 x 0.9 x 0.8 cm LEFT: # of nodules measured on left: 2 1. 1.4 X 1.2 x 1.2 cm, lower lateral, cystic or almost completely cystic, hypoechoic nodule, which is wider than tall, with smooth margins, without echogenic foci. Prior size: 0.9 x 0.7 x 0.7 cm 2. 0.7 X 0.7 x 1.0 cm, lower medial, solid or almost completely solid, hyperechoic nodule, which i s wider than tall, with smooth margins, without echogenic foci. TR 3 second area previously measured not seen with certainty. New prominent area measured instead. ISTHMUS: # of nodules measured in the isthmus: 0 Bilateral neck scanned, no evidence of lymphadenopathy. IMPRESSION: Mildly suspicious subcentimeter nodule left lobe thyroid. 2017 ACR TI-RADS LEVEL: TR-RADS 3 - Mildly Suspicious: Follow if > 1.5 cm, FNA if > 2.5 cm *Highest TI-RADS level nodule reported
== END | disposition home or self-care (01) ==
LOC: RADUSWWP 16:27
PROVIDERS: ATTEND Family Medicine
DX: E04.1 Nontoxic single thyroid nodule (principal)
CPT/HCPCS: 76536

== ENCOUNTER → 2024-03-13 | Outpatient (CLI) | payer BC ==
--- NOTE | 2024-03-13 16:03 | US ---
EXAMINATION TYPE: US venous doppler duplex LE RT DATE OF EXAM: 03/13/2024 3:56 PM COMPARISON: NONE CLINICAL INDICATION: Female, 53 years old with history of RLE; R60.0 Edema LOCALIZED EDEMA; Pt states right leg pain x 2 months, Pain TECHNIQUE: The lower extremity deep venous system is examined utilizing real time linear array sonog artemio with graded compression, color doppler sonography, and spectral doppler. SIDE PERFORMED: Right FINDINGS: VESSELS IMAGED: Common Femoral Vein Deep Femoral Vein Greater Saphenous Vein * Femoral Vein Popliteal Vein Small Saphenous Vein * Proximal Calf Veins (* superficial vessels) Right Leg: Negative for DVT, Color Doppler imaging shows patency of the vessels. Spectral waveforms are within normal limits. IMPRESSION: No ultrasound evidence for deep venous thrombosis. [facility], , 03/13/2024 4:00 PM
== END | disposition home or self-care (01) ==
LOC: RADUSWWP 15:37
PROVIDERS: ATTEND Family Medicine
DX: R60.0 Localized edema (principal)